=== PATIENT | male | born 1985 | race Caucasian/White ===

== ENCOUNTER 2017-08-27 23:28 | Emergency (ER) | payer OTHER ==
[~2017-08-27] VITALS: Ht 175.3 cm; Wt 116.4 kg
[2017-08-27 23:35] VITALS: BP 147/119
[2017-08-27] MEDS ORDERED: NAPROSYN500 MG PO (23:42)
[2017-08-28] MEDS ORDERED: BACTRIM,SEPT1 TABLET PO (23:58)
== END 2017-08-28 00:29 | disposition home or self-care (01) ==
LOC: EME 23:28
DX: L03.113 Cellulitis of right upper limb (principal)
CPT/HCPCS: 99281; 99283

== ENCOUNTER 2017-08-28 21:47 | Emergency (ER) | payer OTHER ==
[~2017-08-28] VITALS: Ht 175.3 cm; Wt 117.0 kg
[~2017-08-28 21:47] MED LIST: NAPROSYN500 MG PO
[2017-08-28] MEDS ORDERED: BACTRIM,SEPT1 TABLET PO (23:58)
[2017-08-29 00:10] VITALS: BP 137/96
== END 2017-08-29 00:10 | disposition home or self-care (01) ==
LOC: EME 21:47
DX: L03.113 Cellulitis of right upper limb (principal)
CPT/HCPCS: 73130; 99281; 99284

== ENCOUNTER 2017-08-30 01:22 | Emergency (ER) | payer OTHER ==
[~2017-08-30] VITALS: Ht 175.3 cm; Wt 116.6 kg
[~2017-08-30 01:22] MED LIST changes: +BACTRIM,SEPT1 TABLET PO
[2017-08-30 03:54] VITALS: BP 151/109
== END 2017-08-30 03:55 | disposition home or self-care (01) ==
LOC: EME 01:22
DX: G56.01 Carpal tunnel syndrome, right upper limb (principal); E78.5 Hyperlipidemia, unspecified
CPT/HCPCS: 99281; 99284; J1885